=== PATIENT | male | born 1950 | race Caucasian/White ===

== ENCOUNTER 2016-09-13 18:49 | Emergency (ER) | payer OTHER ==
[2016-09-13 19:10] VITALS: BMI 30.1
[2016-09-13 21:48] VITALS: TEMP 97.4
--- NOTE | 2016-09-13 23:19 | PDOC ---
[id number] COLD SYMPTOMS Time Seen by Provider: 09/13/16 20:42 - History of Present Illness Initial Comments: 09/13/16 23:00 CHIEF COMPLAINT: throat pain HISTORY OF PRESENT ILLNESS: 66 yo M with no PMH presents to ED with throat pain and chills x 3 days. Patient states he feels pain to the left side of his throat when he swallows. He reports body chills but is unsure if he has had a fever. He also reports cough. Patient returned from [place] approximately 3-4 weeks ago. PAST MEDICAL HISTORY: Denies past medical history FAMILY HISTORY: Denies SOCIAL HISTORY: Denies tobacco, alcohol, illicit drug use. SURGICAL HISTORY: Denies ALLERGIES: No known drug allergies REVIEW OF SYSTEMS as per HPI, otherwise negative PHYSICAL EXAM General Appearance: Well-appearing, appropriately dressed. No apparent distress , no intoxication. HEENT: EOMI, PERRLA, normal ENT inspection, normal voice, TMs normal, pharynx normal. No conjunctival pallor. No photophobia, scleral icterus. Respiratory/Chest: Lungs CTAB. Cardiovascular: RRR. S1, S2. Gastrointestinal/Abdominal: Normal bowel sounds. Abdomen soft, non-distended. No tenderness or rebound tenderness. No organomegaly, pulsatile mass, guarding , hernia, hepatomegaly, splenomegaly. Musculoskeletal/Extremities: Normal inspection. FROM of all extremities, normal capillary refill. Pelvis Stable. No CVA tenderness. No tenderness to extremities, pedal edema, swelling, erythema or deformity. Integumentary: Appropriate color, dry, warm. No cyanosis, erythema, jaundice or rash Neurologic: district claims manager II-XII intact. Fully oriented, alert. Appropriate mood/affect. Motor strength 5/5. No appreciable EOM palsy, facial droop or sensory deficit. Past History - Past Medical History Allergies/Adverse Reactions: Allergies Allergy/AdvReac Type Severity Reaction Status Date / Time No Known Allergies Allergy Verified 09/13/16 21:46 Home Medications: Ambulatory Orders Dextromethorphan HBr [Cough Control] 15 mg PO QID #28 capsule 09/14/16 Phenol/Glycerin [Chloraseptic Max [place]] 30 ml MM QID PRN #1 spray 09/14/16 Anemia: No Asthma: No Cancer: No Cardiac Disorders: No CVA: No COPD: No CHF: No Dementia: No Diabetes: No GI Disorders: No Disorders: No HTN: No Hypercholesterolemia: No Liver Disease: No Suicide Attempt (Hx): No Seizures: No Thyroid Disease: No Other medical history: PATIENT DENIES PAST MEDICAL HISTORY - Immunization History Immunization Up to Date: Yes - Psycho/Social/Smoking Cessation Hx Anxiety: No Suicidal Ideation: No Smoking Status: No Smoking History: Never smoked Have you smoked in the past 12 months: No Number of Cigarettes Smoked Daily: 0 Hx Alcohol Use: No Drug/Substance Use Hx: No Substance Use Type: None Hx Substance Use Treatment: No *Physical Exam - Vital Signs Last Vital Signs Temp Pulse Resp BP Pulse Ox 97.4 F L 79 18 125/74 99 09/13/16 21:47 09/13/16 18:58 09/13/16 18:58 09/13/16 18:58 09/13/16 18:58 *DC/Admit/Observation/Transfer Diagnosis at time of Disposition: Cough - Discharge Dispostion Disposition: HOME Condition at time of disposition: Stable Admit: No - Prescriptions Prescriptions: Phenol/Glycerin [Chloraseptic Max [place]] 30 ml MM QID PRN #1 spray PRN Reason: Pain Dextromethorphan HBr [Cough Control] 15 mg PO QID #28 capsule - Referrals Referrals: [facility] [Provider Group] - Patient Instructions Printed Discharge Instructions: DI for Cough -- Adult Additional Instructions: Please take medication as prescribed and follow up with the clinic in 2 days if symptoms persist. Follow up with a dentist for further evaluation of your tooth pain. If you develop any fever that does not go away with Motrin or Tylenol; shortness of breath; difficulty breathing, speaking, or swallowing; chest pain; or have any new or worsening symptoms, please return to the ER.
[2016-09-14 01:18] VITALS: BP 131/79; PULSE 63
== END 2016-09-14 01:18 | disposition home or self-care (01) ==
LOC: JER 18:49
DX: R05 Cough (principal)
CPT/HCPCS: 87070; 87430; 87804; 99283-25

== ENCOUNTER 2018-08-04 17:03 | Emergency (ER) | payer OTHER ==
[2018-08-04 17:20] VITALS: BP 118/66; PULSE 71; TEMP 98.1; BMI 30.1
--- NOTE | 2018-08-04 19:14 | PDOC ---
History of Present Illness - General Chief Complaint: Back Pain Stated Complaint: LOWER BACK PAIN Time Seen by Provider: 08/04/18 18:20 History Source: Patient, Pairer Used (#[id number]) - History of Present Illness Initial Comments: 08/04/18 19:34 Patient with no past medical history present with complaint of one-week history of lower back pain on the sacral region with pain radiating to bilateral posterior leg. 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 Patient did not take anything for pain. Denies numbness and tingling sensation. Denies saddle paresthesia or incontinence. Past History - Past Medical History Allergies/Adverse Reactions: Allergies Allergy/AdvReac Type Severity Reaction Status Date / Time No Known Allergies Allergy Verified 08/04/18 17:16 Home Medications: Ambulatory Orders Methocarbamol [Robaxin -] 500 mg PO BID PRN #14 tablet 08/04/18 Naproxen 500 mg PO BID PRN #20 tablet 08/04/18 Anemia: No Asthma: No Cancer: No Cardiac Disorders: No CVA: No COPD: No CHF: No Dementia: No Diabetes: No GI Disorders: No Disorders: No HTN: No Hypercholesterolemia: No Liver Disease: No Seizures: No Thyroid Disease: No - Immunization History Immunization Up to Date: Yes - Suicide/Smoking/Psychosocial Hx Smoking Status: No Smoking History: Smoker current status UNK Have you smoked in the past 12 months: No Number of Cigarettes Smoked Daily: 0 Hx Alcohol Use: No Drug/Substance Use Hx: No Substance Use Type: None Hx Substance Use Treatment: No Review of Systems - Review of Systems Able to Perform ROS?: Yes Is the patient limited Serbian proficient: No Constitutional: No: Malaise, Weakness HEENTM: No: Symptoms Reported Respiratory: No: Symptoms reported Cardiac (ROS): No: Symptoms Reported ABD/GI: No: Nausea, Vomiting : No: Burning, Dysuria, Discharge, Frequency, Urgency Musculoskeletal: Yes: See HPI, Back Pain (lower back pain). No: Muscle Weakness , Joint Stiffness Neurological: No: Numbness, Paresthesia, Tingling All Other Systems: Reviewed and Negative *Physical Exam - Vital Signs Last Vital Signs Temp Pulse Resp BP Pulse Ox 98.1 F 71 18 118/66 99 08/04/18 17:18 08/04/18 17:18 08/04/18 17:18 08/04/18 17:18 08/04/18 17:18 - Physical Exam Comments: 08/04/18 19:38 GENERAL: Well developed, well nourished. Awake and alert. No acute distress. CARDIOVASCULAR: Regular rate and rhythm. No murmurs, rubs, or gallops. PULMONARY: No evidence of respiratory distress. Lungs clear to auscultation bilaterally. No wheezing, rales or rhonchi. ABDOMINAL: Soft. Non-tender. Non-distended. No rebound or guarding. No organomegaly. Normoactive bowel sounds MUSCULOSKELETAL : mild tenderness over posterior paravertebral muscle to lumbosacral spine from L5-S2 on bilateral sides. Free range of motion of hip. Negative straight legs tests of bilateral lower extremity. No bony deformities EXTREMITIES: No cyanosis. No clubbing. No edema. No calf tenderness. SKIN: Warm and dry. Normal capillary refill. No rashes. No jaundice. NEUROLOGICAL: Alert, awake, appropriate. No motor deficits in the lower extremities. Gait is normal without ataxia. PSYCHIATRIC: Cooperative. Good eye contact. Appropriate mood and affect. General Appearance: Yes: Nourished, Appropriately Dressed. No: Apparent Distress Moderate Sedation - Procedure Monitoring Vital Signs: Procedure Monitoring Vital Signs Temperature 98.1 F 08/04/18 17:18 Pulse Rate 71 08/04/18 17:18 Respiratory Rate 18 08/04/18 17:18 Blood Pressure 118/66 08/04/18 17:18 O2 Sat by Pulse Oximetry (%) 99 08/04/18 17:18 Medical Decision Making - Medical Decision Making 08/04/18 19:41 Patient with no medical history present with complaint of one-week history of lower back pain and working as a construction scheduler. Patient did not take anything for pain. Exam significant for mild tenderness to bilateral lumbosacral region with negative radiculopathy. Symptoms likely muscle strain with spasm. Toradol 30 mg IM given for pain. Patient is stable for discharge on naproxen and Robaxin for pain with PCP follow-up. *DC/Admit/Observation/Transfer Diagnosis at time of Disposition: Back pain Qualifiers: Back pain location: low back pain Chronicity: acute Back pain laterality: bilateral Sciatica presence: without sciatica Qualified Code(s): M54.5 - Low back pain - Discharge Dispostion Disposition: HOME Condition at time of disposition: Stable Decision to Admit order: No - Prescriptions Prescriptions: Methocarbamol [Robaxin -] 500 mg PO BID PRN #14 tablet PRN Reason: Back Pain Naproxen 500 mg PO BID PRN #20 tablet PRN Reason: Back Pain - Referrals Referrals: Devan Hernandez MD [Primary Care Provider] - - Patient Instructions Printed Discharge Instructions: Low Back Pain Additional Instructions: Your symptoms likely from muscle spasm. Take medication as prescribed as needed for pain. Follow-up with primary care as needed Print Language: PERSIAN - Post Discharge Activity Forms/Work/School Notes: Back to Work
[2018-08-04] MEDS ORDERED: KETOROLAC TROMETHAMINE 30 MG/1 ML VIAL IM ONE (19:22)
[2018-08-04] MEDS ORDERED: KETOROLAC TROMETHAMINE 30 MG/1 ML VIAL ONE (19:25)
== END 2018-08-04 19:35 | disposition home or self-care (01) ==
LOC: JERFT 17:03
PROC: 3E0233Z Introduction of Anti-inflammatory into Muscle, Percutaneous Approach (ICD-10-PCS; principal; 2018-08-04)
DX: M54.5 Low back pain (principal)
CPT/HCPCS: 96372; 99281-25

== ENCOUNTER 2019-01-21 07:01 | Emergency (ER) | payer OTHER ==
[2019-01-21 07:22] VITALS: BP 133/75; PULSE 89; TEMP 99.6; BMI 29.2
--- NOTE | 2019-01-21 07:43 | PDOC ---
History of Present Illness - General History Source: Patient - History of Present Illness Timing/Duration: reports: yesterday Associated Symptoms: reports: cough, fever/chills. denies: shortness of breath <Per Madrid - Last Filed: 01/21/19 09:14> <FloriLance - Last Filed: 01/21/19 16:39> - General Chief Complaint: Cold Symptoms Stated Complaint: LEFT SIDED PAIN Time Seen by Provider: 01/21/19 07:39 Past History - Past Medical History Anemia: No Asthma: No Cancer: No Cardiac Disorders: No CVA: No COPD: No CHF: No Dementia: No Diabetes: No GI Disorders: No Disorders: No HTN: No Hypercholesterolemia: No Liver Disease: No Seizures: No Thyroid Disease: No Other medical history: daisy - Immunization History Immunization Up to Date: Yes - Suicide/Smoking/Psychosocial Hx Smoking Status: No Smoking History: Never smoked Have you smoked in the past 12 months: No Number of Cigarettes Smoked Daily: 0 Information on smoking cessation initiated: No Hx Alcohol Use: No Drug/Substance Use Hx: No Substance Use Type: None Hx Substance Use Treatment: No <Per Madrid - Last Filed: 01/21/19 09:14> <Lance Ruby - Last Filed: 01/21/19 16:39> - Past Medical History Allergies/Adverse Reactions: Allergies Allergy/AdvReac Type Severity Reaction Status Date / Time No Known Allergies Allergy Verified 01/21/19 07:19 Home Medications: Ambulatory Orders Unobtainable 01/21/19 Review of Systems - Review of Systems Constitutional: Yes: Chills. No: Fever, Malaise, Weakness HEENTM: No: Throat Pain Respiratory: No: Shortness of Breath, Wheezing Cardiac (ROS): Yes: Chest Pain <Per Madrid - Last Filed: 01/21/19 09:14> *Physical Exam - Vital Signs Last Vital Signs Temp Pulse Resp BP Pulse Ox 99.6 F 89 19 133/75 99 01/21/19 07:16 01/21/19 07:16 01/21/19 07:16 01/21/19 07:16 01/21/19 07:16 - Physical Exam General Appearance: Yes: Appropriately Dressed. No: Apparent Distress HEENT: positive: Normal Voice Neck: positive: Supple Respiratory/Chest: positive: Lungs Clear, Normal Breath Sounds. negative: Respiratory Distress Cardiovascular: positive: Regular Rate, S1, S2 Gastrointestinal/Abdominal: positive: Soft. negative: Tender Integumentary: positive: Dry, Warm Neurologic: positive: Fully Oriented, Alert, Normal Mood/Affect <Per Madrid - Last Filed: 01/21/19 09:14> - Vital Signs Last Vital Signs Temp Pulse Resp BP Pulse Ox 99.6 F 89 19 133/75 99 01/21/19 07:16 01/21/19 07:16 01/21/19 07:16 01/21/19 07:16 01/21/19 07:16 <Lance Ruby - Last Filed: 01/21/19 16:39> Medical Decision Making - Medical Decision Making 01/21/19 07:40 68 -year-old male, denies any past medical history, here with non-productive cough with pleuritic chest pain, chills and body aches since last night. No shortness of breath, hemoptysis, documented fever, nausea, vomiting, abdominal pain or dysuria. No recent travel or sick contacts. Has not taken anything for symptoms see exam Viral syndrome Stable and well vladimir w/ normal exam -CXR r/o PNA -EKG given CP though appears pleuritic, no concern for PE -anticipate discharge 01/21/19 08:40 EKG and CXR normal here. Will dc/ with supportive tx. PMD f/u as needed <Per Madrid - Last Filed: 01/21/19 09:14> - Medical Decision Making 01/21/19 16:38 I reviewed the case of the mid-level practitioner and was available for consultation while in the emergency department <Lance Ruby - Last Filed: 01/21/19 16:39> *DC/Admit/Observation/Transfer <Per Mardid - Last Filed: 01/21/19 09:14> <Lance Ruby - Last Filed: 01/21/19 16:39> Diagnosis at time of Disposition: Viral syndrome - Discharge Dispostion Disposition: HOME Condition at time of disposition: Good - Referrals Referrals: Devan Hernandez MD [Primary Care Provider] - - Patient Instructions Printed Discharge Instructions: DI for Viral Syndrome Additional Instructions: La causa de flora sntomas es probablemente viral. Travis cuerpo combate los virus de forma natural, rachelle puede tardar entre varios lei y zarina semana en mejorar. El tratamiento consiste en sony Tylenol segn sea necesario para el dolor o la fiebre, beber muchos lquidos y descansar. Travis electrocardiograma y travis radiografa de trax maine normales aqu. Regrese a la lynette de emergencias para empeorar los sntomas, de lo contrario, aristeo un seguimiento con travis PMD Print Language: WOLOF - Post Discharge Activity
--- NOTE | 2019-01-21 12:54 | EKG ---
Test Reason : Blood Pressure : / mmHG Vent. Rate : 079 BPM Atrial Rate : 079 BPM P-R Int : 152 ms QRS Dur : 070 ms QT Int : 352 ms P-R-T Axes : 051 055 023 degrees QTc Int : 403 ms NORMAL SINUS RHYTHM NORMAL ECG WHEN COMPARED WITH ECG OF 22-OCT-2015 19:46, NO SIGNIFICANT CHANGE WAS FOUND Confirmed by NURY FRENCH MD ([id number]) on 01/21/2019 12:53:37 PM Referred By: Confirmed By:NURY FRENCH MD
== END 2019-01-21 08:56 | disposition home or self-care (01) ==
LOC: JER 07:01
DX: B34.9 Viral infection, unspecified (principal)
CPT/HCPCS: 71046-TC-FY; 93005; 93010; 99282-25

== ENCOUNTER 2022-02-27 10:54 | Emergency (ER) | payer OTHER ==
[2022-02-27 11:03] VITALS: BP 133/63; PULSE 66; RESP 18; TEMP 97.8; BMI 25.8
[2022-02-27] MEDS ORDERED: SODIUM CHLORIDE 0.9% 500 ML INFUS.BAG IV ONE (11:56)
[2022-02-27] MEDS ORDERED: METOCLOPRAMIDE HCL INJECTION 10 MG/2 ML VIAL IVPUSH ONE (11:56)
[2022-02-27] MEDS ORDERED: METOCLOPRAMIDE HCL INJECTION 10 MG/2 ML VIAL ONE (11:58)
[2022-02-27 12:09] LABS: BASO % 1.8 % (0-2.0); EOS % 3.7 % (0-4.5); HEMATOCRIT 43.5 % (35.4-49); HEMOGLOBIN 14.2 GM/dL (11.7-16.9); LYMPH % 10.6 % (8-40); MCH 29.9 pg (25.7-33.7); MCHC 32.6 g/dl (32.0-35.9); MEAN CELL VOLUME 91.7 fl (80-96); MEAN PLT VOLUME 7.6 fl (7.5-11.1); MONO % 7.9 % (3.8-10.2); PLATELET COUNT 219 10^3/uL (134-434); RBC 4.75 M/mm3 (4.00-5.60); RDW 13.4 % (11.9-15.9); WHITE BLOOD COUNT 10.7 K/mm3 (4.0-10.0)
[2022-02-27 12:31] LABS: CALCIUM 8.6 mg/dL (8.5-10.1)
[2022-02-27 12:33] LABS: ALBUMIN 3.5 g/dl (3.4-5.0); BLOOD UREA NITROGEN 10.7 mg/dL (7-18); MAGNESIUM 2.4 mg/dL (1.8-2.4)
[2022-02-27 12:35] LABS: CREATININE 0.7 mg/dL (0.55-1.3)
[2022-02-27 12:36] LABS: BILIRUBIN,TOTAL 0.4 mg/dL (0.2-1)
[2022-02-27 16:39] LABS: EPI CELLS 0.2 /uL (0-25.1); PH,URINE 5.5 (5.0-8.0); URINE APPEARANCE CLEAR; URINE BILIRUBIN NEGATIVE (NEGATIVE); URINE COLOR YELLOW; URINE GLUCOSE (UA) NEGATIVE (NEGATIVE); URINE KETONE NEGATIVE (NEGATIVE); URINE LEUK ESTERASE NEGATIVE (NEGATIVE); URINE NITRITE NEGATIVE (NEGATIVE); URINE PROTEIN NEGATIVE (NEGATIVE); URINE RBC 5 /uL (0-23.9); URINE UROBILINOGEN 0.2 mg/dL (0.2-1.0); URINE WBC 1 /uL (0-25.8)
[2022-02-27 16:40] LABS: HYALINE CASTS 0 /uL (0-3.1); URINE BACTERIA 0 /uL (0-1359)
== END 2022-02-27 15:30 | disposition home or self-care (01) ==
LOC: JER 10:54
PROC: 3E033GC Introduction of Other Therapeutic Substance into Peripheral Vein, Percutaneous Approach (ICD-10-PCS; principal; 2022-02-27)
DX: R05.1 Acute cough (principal); R51.9 Headache, unspecified; R59.1 Generalized enlarged lymph nodes
CPT/HCPCS: 0241U-QW; 36415; 70450-TC; 71046-TC-FY; 71275-TC; 80053; 81003; 83735; 84484; 85025; 85379; 87086; 93005; 93010; 96374; 99285-25; Q9967

== ENCOUNTER 2022-04-26 19:49 | Emergency (ER) | payer OTHER ==
[2022-04-26 20:07] VITALS: RESP 18; TEMP 98.1; BMI 25.8
[2022-04-26] MEDS ORDERED: ACETAMINOPHEN INJECTION 100 ML IVPB ONE (22:49)
[2022-04-26] MEDS ORDERED: ASPIRIN 325 MG TABLET ONE (22:49)
[2022-04-26] MEDS ORDERED: KETOROLAC TROMETHAMINE 15 MG/ML VIAL ONE (22:49)
[2022-04-26] MEDS ORDERED: KETOROLAC TROMETHAMINE 15 MG/ML VIAL IVPUSH ONE (22:54)
[2022-04-26] MEDS ORDERED: ACETAMINOPHEN 1000 MG/100 ML BAG IVPB ONE (22:55)
[2022-04-26] MEDS ORDERED: ASPIRIN 81 MG CHEWABLE TABLETS PO ONE (22:55)
[2022-04-26 23:09] LABS: BASO % 0.5 % (0-2.0); EOS % 4.9 % (0-4.5); HEMATOCRIT 42.8 % (35.4-49); LYMPH % 36.9 % (8-40); MCH 29.8 pg (25.7-33.7); MCHC 32.8 g/dl (32.0-35.9); MEAN CELL VOLUME 91.1 fl (80-96); MEAN PLT VOLUME 7.6 fl (7.5-11.1); NEUT % 46.7 % (42.8-82.8); PLATELET COUNT 230 10^3/uL (134-434); RDW 13.9 % (11.9-15.9); WHITE BLOOD COUNT 7.6 K/mm3 (4.0-10.0)
[2022-04-26 23:15] LABS: INR 1.04 (0.83-1.09)
[2022-04-26 23:18] LABS: ACTIVATED PTT 29.8 SECONDS (25.2-36.5)
[2022-04-26 23:30] LABS: ALBUMIN 3.7 g/dl (3.4-5.0); BLOOD UREA NITROGEN 13.3 mg/dL (7-18); CALCIUM 8.9 mg/dL (8.5-10.1); MAGNESIUM 2.3 mg/dL (1.8-2.4)
[2022-04-26 23:33] LABS: CREATININE 0.8 mg/dL (0.55-1.3)
[2022-04-26 23:35] LABS: BILIRUBIN,TOTAL 0.4 mg/dL (0.2-1); TOT PROT 7.3 g/dl (6.4-8.2)
[2022-04-27 01:00] VITALS: BP 154/83; PULSE 60
== END 2022-04-27 01:00 | disposition home or self-care (01) ==
LOC: JER 19:49
PROC: 3E033GC Introduction of Other Therapeutic Substance into Peripheral Vein, Percutaneous Approach (ICD-10-PCS; principal; 2022-04-26)
DX: R07.89 Other chest pain (principal)
CPT/HCPCS: 36415; 71045-TC-FY; 80053; 83735; 84100; 84484; 85025; 85610; 85730; 93005; 93010; 99285-25

== ENCOUNTER 2022-11-14 18:36 | Emergency (ER) | payer OTHER ==
[2022-11-14 18:51] VITALS: BP 127/67; PULSE 86; RESP 20; TEMP 98.2; BMI 28.2
[2022-11-14] MEDS ORDERED: DEXAMETHASONE SOD PHOSPHATE 10 MG/1 ML VIAL IVPUSH ONE (19:02)
[2022-11-14] MEDS ORDERED: ACETAMINOPHEN 1000 MG/100 ML BAG IVPB ONE (19:03)
[2022-11-14] MEDS ORDERED: SODIUM CHLORIDE 0.9% 500 ML INFUS.BAG IV ONE (19:03)
[2022-11-14] MEDS ORDERED: ACETAMINOPHEN INJECTION 100 ML IVPB ONE (19:23)
[2022-11-14] MEDS ORDERED: DEXAMETHASONE SOD PHOSPHATE 10 MG/1 ML VIAL ONE (19:23)
[2022-11-14] MEDS ORDERED: AZITHROMYCIN IVPB 500 MG in DEXTROSE 5%-WATER - 250 ML IVPB ONE (19:33)
[2022-11-14] MEDS ORDERED: CEFTRIAXONE 1,000 MG in DEXTROSE 5%-WATER - 50 ML IVPB ONE (19:33)
[2022-11-14 19:39] LABS: BASO % 0.4 % (0-2.0); EOS % 0.2 % (0-4.5); HEMATOCRIT 40.7 % (35.4-49); HEMOGLOBIN 13.6 GM/dL (11.7-16.9); LYMPH % 12.9 % (8-40); MCH 29.8 pg (25.7-33.7); MCHC 33.4 g/dl (32.0-35.9); MEAN CELL VOLUME 89.1 fl (80-96); MEAN PLT VOLUME 7.6 fl (7.5-11.1); MONO % 9.9 % (3.8-10.2); NEUT % 76.6 % (42.8-82.8); PLATELET COUNT 193 10^3/uL (134-434); RBC 4.57 M/mm3 (4.00-5.60); RDW 13.9 % (11.9-15.9)
[2022-11-14] MEDS ORDERED: CEFTRIAXONE 1 GM/50 ML BAG ONE (19:52)
[2022-11-14 19:55] LABS: POTASSIUM 4.6 mmol/L (3.5-5.1)
[2022-11-14 19:57] LABS: CALCIUM 8.9 mg/dL (8.5-10.1)
[2022-11-14 19:58] LABS: ALBUMIN 3.6 g/dl (3.4-5.0); BLOOD UREA NITROGEN 15.2 mg/dL (7-18)
[2022-11-14 20:01] LABS: CREATININE 1.1 mg/dL (0.55-1.3)
[2022-11-14 20:03] LABS: TOT PROT 7.3 g/dl (6.4-8.2)
[2022-11-14 20:23] LABS: THROAT:GRP A STREP NOT DETECTED (NOTDETECTED)
== END 2022-11-14 21:45 | disposition home or self-care (01) ==
LOC: JER 18:36
PROC: 3E03329 Introduction of Other Anti-infective into Peripheral Vein, Percutaneous Approach (ICD-10-PCS; principal; 2022-11-14)
PROC: 3E03329 Introduction of Other Anti-infective into Peripheral Vein, Percutaneous Approach (ICD-10-PCS; 2022-11-14)
PROC: 3E033NZ Introduction of Analgesics, Hypnotics, Sedatives into Peripheral Vein, Percutaneous Approach (ICD-10-PCS; 2022-11-14)
PROC: 3E033GC Introduction of Other Therapeutic Substance into Peripheral Vein, Percutaneous Approach (ICD-10-PCS; 2022-11-14)
DX: R06.02 Shortness of breath (principal); R07.0 Pain in throat; R07.89 Other chest pain; R49.0 Dysphonia; J18.9 Pneumonia, unspecified organism; Z20.822 Contact with and (suspected) exposure to COVID-19
CPT/HCPCS: 0241U-QW; 36415; 71046-TC-FY; 80053; 84484; 85025; 87651; 93005; 93010; 96365; 96368; 96375; 99285-25; J1100

== ENCOUNTER 2022-11-16 09:42 | Emergency (ER) | payer OTHER ==
[2022-11-16 10:02] VITALS: BMI 24.2
[2022-11-16] MEDS ORDERED: ACETAMINOPHEN 1000 MG/100 ML BAG IVPB ONE (10:29)
[2022-11-16] MEDS ORDERED: ACETAMINOPHEN INJECTION 100 ML IVPB ONE (10:36)
[2022-11-16 11:29] LABS: BASO % 0.1 % (0-2.0); EOS % 0.3 % (0-4.5); HEMATOCRIT 40.9 % (35.4-49); HEMOGLOBIN 13.1 GM/dL (11.7-16.9); LYMPH % 20.7 % (8-40); MCH 29.7 pg (25.7-33.7); MCHC 31.9 g/dl (32.0-35.9); MEAN PLT VOLUME 8.2 fl (7.5-11.1); NEUT % 69.9 % (42.8-82.8); PLATELET COUNT 196 10^3/uL (134-434); RDW 14.2 % (11.9-15.9); WHITE BLOOD COUNT 13.6 K/mm3 (4.0-10.0)
[2022-11-16 11:49] LABS: POTASSIUM 4.4 mmol/L (3.5-5.1)
[2022-11-16 11:53] LABS: CALCIUM 8.8 mg/dL (8.5-10.1)
[2022-11-16 11:54] LABS: ALBUMIN 3.4 g/dl (3.4-5.0); BLOOD UREA NITROGEN 16.7 mg/dL (7-18)
[2022-11-16 11:55] LABS: CREATININE 0.8 mg/dL (0.55-1.3)
[2022-11-16 11:56] LABS: BILIRUBIN,TOTAL 0.5 mg/dL (0.2-1); TOT PROT 7.1 g/dl (6.4-8.2)
[2022-11-16 12:00] LABS: N-TERMINAL BNP 194.6 pg/ml (5-125)
[2022-11-16] MEDS ORDERED: DEXAMETHASONE SOD PHOSPHATE 10 MG/1 ML VIAL IVPUSH ONE (12:30)
[2022-11-16] MEDS ORDERED: KETOROLAC TROMETHAMINE 30 MG/1 ML VIAL IVPUSH ONE (12:31)
[2022-11-16] MEDS ORDERED: DEXAMETHASONE SOD PHOSPHATE 10 MG/1 ML VIAL ONE (12:33)
[2022-11-16] MEDS ORDERED: KETOROLAC TROMETHAMINE 30 MG/1 ML VIAL ONE (12:34)
[2022-11-16 16:02] VITALS: BP 132/75; PULSE 65; RESP 20; TEMP 98.8
== END 2022-11-16 16:03 | disposition home or self-care (01) ==
LOC: JER 09:42
PROC: 3E033NZ Introduction of Analgesics, Hypnotics, Sedatives into Peripheral Vein, Percutaneous Approach (ICD-10-PCS; principal; 2022-11-16)
PROC: 3E033GC Introduction of Other Therapeutic Substance into Peripheral Vein, Percutaneous Approach (ICD-10-PCS; 2022-11-16)
PROC: 3E0333Z Introduction of Anti-inflammatory into Peripheral Vein, Percutaneous Approach (ICD-10-PCS; 2022-11-16)
DX: J02.9 Acute pharyngitis, unspecified (principal)
CPT/HCPCS: 0241U-QW; 36415; 70491-TC; 71250-TC; 80053; 83880; 84484; 85025; 87040; 87651; 93005; 93010; 99284-25; J1100; Q9967

== ENCOUNTER 2023-02-01 07:29 | Emergency (ER) | payer OTHER ==
[2023-02-01 07:40] VITALS: BMI 24.2
[2023-02-01 09:26] LABS: BASO % 0.4 % (0-2.0); EOS % 4.1 % (0-4.5); HEMATOCRIT 42.4 % (35.4-49); HEMOGLOBIN 13.8 GM/dL (11.7-16.9); MCH 30.2 pg (25.7-33.7); MCHC 32.7 g/dl (32.0-35.9); MEAN CELL VOLUME 92.5 fl (80-96); MONO % 9.9 % (3.8-10.2); NEUT % 68.6 % (42.8-82.8); PLATELET COUNT 210 10^3/uL (134-434); RBC 4.58 M/mm3 (4.00-5.60); RDW 13.9 % (11.9-15.9); WHITE BLOOD COUNT 9.7 K/mm3 (4.0-10.0)
[2023-02-01 09:45] LABS: POTASSIUM 4.7 mmol/L (3.5-5.1)
[2023-02-01 09:48] LABS: ALBUMIN 3.2 g/dl (3.4-5.0); BLOOD UREA NITROGEN 10.1 mg/dL (7-18); CALCIUM 8.1 mg/dL (8.5-10.1)
[2023-02-01 09:51] LABS: CREATININE 0.8 mg/dL (0.55-1.3)
[2023-02-01 09:53] LABS: BILIRUBIN,TOTAL 0.4 mg/dL (0.2-1)
[2023-02-01 12:27] VITALS: BP 127/75; PULSE 65; RESP 20; TEMP 97.5
== END 2023-02-01 12:28 | disposition home or self-care (01) ==
LOC: JER 07:29
DX: R07.0 Pain in throat (principal); R07.9 Chest pain, unspecified; B34.9 Viral infection, unspecified; Z20.822 Contact with and (suspected) exposure to COVID-19
CPT/HCPCS: 0241U-QW; 36415; 71046-TC-FY; 80053; 84484; 85025; 87070; 93005; 93010; 99285-25

== ENCOUNTER 2023-04-20 16:26 | Emergency (ER) | payer OTHER ==
[2023-04-20 16:35] VITALS: BP 134/67; PULSE 68; RESP 18; TEMP 97.9; BMI 29.5
[2023-04-20] MEDS ORDERED: SODIUM CHLORIDE 0.9% 500 ML INFUS.BAG IV ONE (17:10)
[2023-04-20] MEDS ORDERED: METOCLOPRAMIDE HCL INJECTION 10 MG/2 ML VIAL IVPB ONE (17:10)
[2023-04-20] MEDS ORDERED: METOCLOPRAMIDE HCL INJECTION 10 MG/2 ML VIAL ONE (17:21)
== END 2023-04-20 18:56 | disposition home or self-care (01) ==
LOC: JER 16:26
PROC: 3E033NZ Introduction of Analgesics, Hypnotics, Sedatives into Peripheral Vein, Percutaneous Approach (ICD-10-PCS; principal; 2023-04-20)
DX: R51.9 Headache, unspecified (principal)
CPT/HCPCS: 70450-TC; 71046-TC-FY; 93005; 93010; 99285-25

== ENCOUNTER 2024-02-02 19:53 | Emergency (ER) | payer OTHER ==
[2024-02-02 20:03] VITALS: BP 126/73; PULSE 77; RESP 18; TEMP 98.5; BMI 27.4
[2024-02-02] MEDS ORDERED: DOXYCYCLINE HYCLATE 100 MG CAPSULE PO ONE (21:52)
[2024-02-02] MEDS ORDERED: AZITHROMYCIN 500 MG TABLET ONE (21:52)
[2024-02-02] MEDS ORDERED: PENICILLIN G BENZATHINE 1,200,000 UNIT/2 ML PFS IM ONE (21:53)
[2024-02-02 21:58] LABS: PH,URINE 5.5 (5.0-8.0); URINE APPEARANCE CLEAR; URINE BILIRUBIN NEGATIVE (NEGATIVE); URINE COLOR YELLOW; URINE GLUCOSE (UA) NEGATIVE (NEGATIVE); URINE KETONE NEGATIVE (NEGATIVE); URINE LEUK ESTERASE NEGATIVE (NEGATIVE); URINE NITRITE NEGATIVE (NEGATIVE); URINE PROTEIN NEGATIVE (NEGATIVE); URINE UROBILINOGEN 0.2 mg/dL (0.2-1.0)
[2024-02-02] MEDS: PENICILLIN G BENZATHINE 2,400,000 UNIT/4 ML PFS IM ONE (22:32)
[2024-02-02] MEDS: AZITHROMYCIN 500 MG TABLET PO ONE (22:32)
[2024-02-02] MEDS: DOXYCYCLINE HYCLATE 100 MG CAPSULE PO ONE (22:33)
[2024-02-02 23:49] LABS: HIV INTERPRETATION NEGATIVE (NEGATIVE)
== END 2024-02-02 23:14 | disposition home or self-care (01) ==
LOC: JER 19:53
DX: N48.5 Ulcer of penis (principal)
CPT/HCPCS: 36415; 81003; 86780; 86803; 87086; 87255; 87389; 87491; 87591; 96372; 99284-25

== ENCOUNTER 2024-11-19 16:54 | Emergency (ER) | payer OTHER ==
[2024-11-19 17:03] VITALS: TEMP 98; BMI 32.2
[2024-11-19 18:35] LABS: HEMATOCRIT 41.1 % (40.1-51.0); HEMOGLOBIN 13.3 g/dL (13.7-17.5); MCHC 32.4 g/dl (32.3-36.5); MEAN CELL VOLUME 91.7 fl (79.0-92.2); MEAN PLT VOLUME 9.1 fl (9.4-12.4); PLATELET COUNT 197 x10^3/uL (163-337); RDW 13.2 % (12.2-16.6)
[2024-11-19 19:04] LABS: POTASSIUM 4.7 mmol/L (3.5-5.1)
[2024-11-19 19:06] LABS: CALCIUM 9.1 mg/dL (8.5-10.1)
[2024-11-19 19:07] LABS: ALBUMIN 3.3 g/dl (3.4-5.0); BLOOD UREA NITROGEN 17.9 mg/dL (7-18); MAGNESIUM 2.2 mg/dL (1.8-2.4)
[2024-11-19 19:11] LABS: BILIRUBIN,TOTAL 0.3 mg/dL (0.2-1); CREATININE 0.9 mg/dL (0.55-1.3); TOT PROT 7.4 g/dl (6.4-8.2)
[2024-11-19 21:27] VITALS: BP 139/68; PULSE 61; RESP 14
== END 2024-11-19 23:13 | disposition home or self-care (01) ==
LOC: JER 16:54
DX: M79.662 Pain in left lower leg (principal); R07.89 Other chest pain; G89.29 Other chronic pain
CPT/HCPCS: 36415; 71046-TC-FY; 80053; 83735; 84484; 85027; 93005; 93010; 93971-TC; 99285-25

== ENCOUNTER 2024-12-07 17:43 | Emergency (ER) | payer OTHER ==
[2024-12-07 17:52] VITALS: BP 137/72; PULSE 66; RESP 16; TEMP 97.9; BMI 29.8
[2024-12-07] MEDS ORDERED: ACETAMINOPHEN 325 MG TABLET (FP) ONE (18:44)
[2024-12-07] MEDS: ACETAMINOPHEN 325 MG TABLET (FP) PO ONE (18:46)
== END 2024-12-07 21:29 | disposition home or self-care (01) ==
LOC: JER 17:43
DX: M79.641 Pain in right hand (principal); R51.9 Headache, unspecified; W01.198A Fall on same level from slipping, tripping and stumbling with subsequent striking against other object, initial encounter; Y92.811 Bus as the place of occurrence of the external cause
CPT/HCPCS: 70450-TC; 72125-TC; 73110-TC-RT-FY; 73130-TC-RT-FY; 99284-25